=== PATIENT | female | born 1970 | race African-American/Black ===

== ENCOUNTER 2017-02-13 10:44 | Emergency (ER) | payer OTHER ==
[~2017-02-13] VITALS: Ht 177.8 cm; Wt 102.0 kg
[~2017-02-13 10:44] MED LIST: ALBUTEROL17 GM INH; CIPRO PO; FAMOTIDINE PO; FLEXERIL PO; KETOPROFEN PO; LORTAB 7.5-5001 TAB PO; MUSCLE RELAXANT PO; PREDNISONE PO; ZITHROMAX PO
== END 2017-02-13 11:23 | disposition home or self-care (01) ==
LOC: CFTX 10:44 → CED 10:44 → CFTX 11:07
DX: R21 Rash and other nonspecific skin eruption (principal); I10 Essential (primary) hypertension; J45.909 Unspecified asthma, uncomplicated; F17.210 Nicotine dependence, cigarettes, uncomplicated; Z90.49 Acquired absence of other specified parts of digestive tract
CPT/HCPCS: 99282; J1100